=== PATIENT | male | born 1990 | race Caucasian/White ===

== ENCOUNTER 2020-05-08 18:51 | Emergency (ER) | payer MEDICAID ==
[~2020-05-08] VITALS: Ht 170.2 cm; Wt 77.3 kg
[2020-05-08] MEDS ORDERED: DIPH,PERTUSS(ACELL),TET VAC/PF 0.5 ML IM-VACC ONE ×2 (20:00→20:13)
[2020-05-08] MEDS ORDERED: LIDOCAINE-MPF 1%, 5ML INFIL ONE (20:00)
--- NOTE | 2020-05-08 20:11 | NUR ---
PT. TO CT VIA [facility].
[2020-05-08] MEDS ORDERED: LIDOCAINE-MPF 1%, 5ML ONE (20:13)
--- NOTE | 2020-05-08 20:49 | NUR ---
PA STUDENT TO BS FOR SUTURES.
[2020-05-08] MEDS ORDERED: CEPHALEXIN 500 MG CAPSULE PO ONE (21:30)
[2020-05-08] MEDS ORDERED: CEPHALEXIN 500 MG CAPSULE ONE (22:03)
[2020-05-08 22:07] VITALS: BP 116/62
== END 2020-05-08 22:35 | disposition home or self-care (01) ==
LOC: ED 19:21
DX: S02.2XXA Fracture of nasal bones, initial encounter for closed fracture (principal); S01.01XA Laceration without foreign body of scalp, initial encounter; S01.21XA Laceration without foreign body of nose, initial encounter; S01.111A Laceration without foreign body of right eyelid and periocular area, initial encounter; S09.90XA Unspecified injury of head, initial encounter; Z87.891 Personal history of nicotine dependence; W18.30XA Fall on same level, unspecified, initial encounter; Y93.89 Activity, other specified; Y92.149 Unspecified place in prison as the place of occurrence of the external cause; Y99.8 Other external cause status
CPT/HCPCS: 12032; 12053; 70486; 90471; 90715; 99285